=== PATIENT | male | born 1955 | race Caucasian/White ===

== ENCOUNTER 2020-07-26 06:37 | Inpatient (IN) | payer OTHER, SELFPAY ==
[2020-07-26] VITALS (9 sets, daily range): BP systolic 80–118
[~2020-07-26] VITALS: Ht 175.3 cm; Wt 77.1 kg
[2020-07-26 07:16] LABS: BASOPHILS % (AUTO) 0.1 % (0.0-2.0); EOSINOPHILS % (AUTO) 0.1 % (0.0-4.0); HEMATOCRIT 29.4 % (36-54); HEMOGLOBIN 9.4 g/dL (14.0-18.0); LYMPHOCYTES # (AUTO) 0.6 K/uL (1.0-5.5); LYMPHOCYTES % (AUTO) 5.1 % (20.5-51.5); MEAN CORPUSCULAR HEMOGLOBIN 26 pg (27-31); MEAN CORPUSCULAR HGB CONC 32 % (32-36); MEAN CORPUSCULAR VOLUME 81 fL (79.0-98.0); MONOCYTES # (AUTO) 0.9 K/uL (0.0-1.0); MONOCYTES % (AUTO) 7.9 % (1.7-9.3); NEUTROPHILS # (AUTO) 10.2 K/uL (1.8-7.7); NEUTROPHILS % (AUTO) 86.8 % (40.0-70.0); PLATELET COUNT (AUTO) 271 K/uL (130-430); RED BLOOD CELL COUNT(AUTO) 3.62 MIL/uL (4.2-6.2); RED CELL DISTRIBUTION WIDTH 23.1 % (9.0-15.0); WHITE BLOOD COUNT (AUTO) 11.7 K/uL (4.8-10.8)
[2020-07-26 07:28] LABS: INR 1.2 (0.80-1.20); PROTHROMBIN TIME 12.3 SECS (9.5-12.5)
[2020-07-26 07:31] LABS: CALCIUM 9.3 mg/dL (8.4-11.0); CREATININE 1.42 mg/dL (0.55-1.30); POTASSIUM 4.5 mmol/L (3.5-5.1)
[2020-07-26] MEDS ORDERED: FER300L PO (07:34)
[2020-07-26] MEDS ORDERED: FURO-149 PO (07:34)
[2020-07-26] MEDS ORDERED: THIA100T73 PO (07:34)
[2020-07-26] MEDS ORDERED: ASCO500T20 PO (07:34)
[2020-07-26] MEDS ORDERED: FLUT1BLS3 INH (07:34)
[2020-07-26] MEDS ORDERED: FOLI-43 PO (07:34)
[2020-07-26] MEDS ORDERED: LORA-258 PO (07:34)
[2020-07-26] MEDS ORDERED: SPIR100T5 PO (07:34)
[2020-07-26] MEDS ORDERED: ZINC220T4 PO (07:34)
[2020-07-26 07:35] LABS: ALBUMIN 2.2 g/dL (3.4-4.8); TOTAL BILIRUBIN 1.9 mg/dL (0.0-1.0)
[2020-07-26 08:08] LABS: C-REACTIVE PROTEIN QUANT 11.3 mg/dL (0-0.5)
[2020-07-26] MEDS ORDERED: CEFOTAXIME SODIUM 1 GM VIAL IV ONE (08:15)
[2020-07-26] MEDS ORDERED: cefTRIAXone 1 GM IVPB PREMIX 50 ML IV ONE (08:45)
[2020-07-26 09:21] LABS: BILIRUBIN,URINE NEGATIVE (NEGATIVE); BLOOD, URINE NEGATIVE (NEGATIVE); CLARITY/URINE CLEAR (CLEAR); COLOR,URINE YELLOW (YELLOW); GLUCOSE,URINE NEGATIVE (NEGATIVE); KETONES,URINE NEGATIVE (NEGATIVE); LEUKOCYTE ESTERASE ,URINE 1+ (NEGATIVE); NITRITE, URINE NEGATIVE (NEGATIVE); PROTEIN URINE NEGATIVE (NEGATIVE); UROBILINOGEN,URINE 0.2 (0.2-1.0)
[2020-07-26] MEDS ORDERED: AZITHROMYCIN 500 MG in NS 250 ML IV ONE (09:30)
[2020-07-26 09:32] LABS: BACTERIA,URINE RARE /HPF (None Seen); RBC,URINE 0-3 /HPF (0-3)
[2020-07-26] MEDS: D5NS 1,000 ML IV SCH ×2 (10:45→23:05)
[2020-07-26] MEDS ORDERED: LACTULOSE 20 GM/30 ML UDC NG ONE (10:45)
[2020-07-26] MEDS ORDERED: ALBUTEROL SULFATE 0.083% 2.5 MG/3 ML VIAL.NEB INH ONE (10:55)
[2020-07-26] MEDS ORDERED: IPRATROPIUM BROM 0.5 MG/2.5 ML VIAL.NEB (ATROVENT) INH ONE (10:55)
[2020-07-26] MEDS ORDERED: AZITHROMYCIN 500 MG/VIAL (ZITHROMAX) IV ONE (11:08)
[2020-07-26] MEDS ORDERED: ALBUTEROL SULFATE 0.083% 2.5 MG/3 ML VIAL.NEB INH PRN (12:15)
[2020-07-26] MEDS ORDERED: IPRATROPIUM BROM 0.5 MG/2.5 ML VIAL.NEB (ATROVENT) INH PRN (12:15)
[2020-07-26] MEDS ORDERED: PIPERACILLIN/TAZO 3.375/DEX-IS 50 ML IV SCH (12:30)
[2020-07-26] MEDS: PIPERACILLIN/TAZO 3.375/DEX-IS 50 ML IV SCH ×3 (12:57→23:05)
[2020-07-26] MEDS ORDERED: PIPERACILLIN/TAZOBACTAM 3.375 GM/VIAL (ZOSYN) IV ONE (13:15)
[2020-07-26] MEDS: ALBUTEROL SULFATE 0.083% 2.5 MG/3 ML VIAL.NEB INH SCH ×3 (15:24→23:00)
[2020-07-26] MEDS: IPRATROPIUM BROM 0.5 MG/2.5 ML VIAL.NEB (ATROVENT) INH SCH ×3 (15:24→23:00)
[2020-07-26] MEDS ORDERED: ALBUMIN HUMAN 5% 500 ML IV ONE (18:00)
[2020-07-26] MEDS: RIFAXIMIN 550 MG TABLET PO SCH (20:10)
[2020-07-26] MEDS: LACTULOSE 20 GM/30 ML UDC PO SCH (20:10)
[2020-07-27] VITALS (13 sets, daily range): BP systolic 99–121
[2020-07-27] MEDS: ALBUTEROL SULFATE 0.083% 2.5 MG/3 ML VIAL.NEB INH SCH ×4 (03:00→15:00)
[2020-07-27] MEDS: IPRATROPIUM BROM 0.5 MG/2.5 ML VIAL.NEB (ATROVENT) INH SCH ×4 (03:00→15:00)
[2020-07-27] MEDS: PIPERACILLIN/TAZO 3.375/DEX-IS 50 ML IV SCH ×2 (05:32→12:07)
[2020-07-27] MEDS: LACTULOSE 20 GM/30 ML UDC PO SCH (09:04)
[2020-07-27] MEDS: RIFAXIMIN 550 MG TABLET PO SCH (09:04)
[2020-07-27] MEDS: D5NS 1,000 ML IV SCH (09:30)
== END 2020-07-27 15:50 | disposition hospice, home (50) | DRG 871 ==
LOC: SED 06:37 → SIC 10:30
PROVIDERS: ADMIT Internal Medicine Hospice and Palliative Medicine; ATTEND Internal Medicine Hospice and Palliative Medicine
DX: A41.9 Sepsis, unspecified organism (principal); J96.01 Acute respiratory failure with hypoxia; J18.9 Pneumonia, unspecified organism; J44.1 Chronic obstructive pulmonary disease with (acute) exacerbation; J44.0 Chronic obstructive pulmonary disease with (acute) lower respiratory infection; N17.9 Acute kidney failure, unspecified; K72.90 Hepatic failure, unspecified without coma; K70.31 Alcoholic cirrhosis of liver with ascites; F03.90 Unspecified dementia, unspecified severity, without behavioral disturbance, psychotic disturbance, mood disturbance, and anxiety; F10.20 Alcohol dependence, uncomplicated; Z20.828 Contact with and (suspected) exposure to other viral communicable diseases; Y90.9 Presence of alcohol in blood, level not specified; Z79.899 Other long term (current) drug therapy; Z87.891 Personal history of nicotine dependence
CPT/HCPCS: 36415; 36600; 70450-TC; 71045; 76700-TC; 80053; 81000-TC; 82140-TC; 82550-TC; 82728; 82803-TC; 83605; 83615-TC; 83880; 84484; 85025; 85379; 85384-TC; 85610-TC; 85730-TC; 86140; 87040-TC; 87081; 87086; 93005; 94640; 96365; 96367; 99285; J0456; J0696; J2543; J7042; J7613; P9041; U0003